=== PATIENT | female | born 1995 | race Hispanic/Latino ===

== ENCOUNTER 2017-05-02 02:35 | Observation (INO) | payer MEDICAID ==
[~2017-05-02] VITALS: Ht 157.5 cm; Wt 54.4 kg
[2017-05-02 03:03] LABS: APPEARANCE,URINE Turbid (CLEAR); BILIRUBIN,URINE Negative (NEGATIVE); COLOR,URINE Yellow (YELLOW); GLUCOSE, URINE (UA) Negative (NEGATIVE); KETONES,URINE Negative (NEGATIVE); LEUKOCYTE ESTERASE ,URINE Moderate (NEGATIVE); NITRATE,URINE Negative (NEGATIVE); OCCULT BLOOD,URINE Small (NEGATIVE); PROTEIN,URINE Negative (NEGATIVE)
[2017-05-02] MEDS ORDERED: MORPHINE SULFATE 2 MG/ML 1ML SYG ONE ×2 (03:03→03:59)
[2017-05-02] MEDS ORDERED: ACETAMINOPHEN EXTRA STRENGTH 500 MG TABLET ONE (03:04)
[2017-05-02 03:06] LABS: BASOPHILS % (AUTO) 0.4 % (0.0-5.0); EOSINOPHILS % (AUTO) 0.5 % (0.0-8.0); HEMATOCRIT 32.9 % (36-48); LYMPHOCYTES % (AUTO) 21.9 % (21.0-51.0); MEAN CORPUSCULAR HEMOGLOBIN 31.2 pg (27.0-33.0); MEAN CORPUSCULAR HGB CONC 34.5 g/dL (32.0-36.0); MEAN CORPUSCULAR VOLUME 90.4 fL (79-99); MONOCYTES % (AUTO) 6.2 % (3.0-13.0); PLATELET COUNT (AUTO) 354 K/uL (130-400); RED BLOOD CELL COUNT(AUTO) 3.64 MIL/uL (4.00-5.50); RED CELL DISTRIBUTION WIDTH 13.1 % (11.0-15.5); WHITE BLOOD COUNT (AUTO) 12.8 K/uL (4.8-10.8)
[2017-05-02 03:16] LABS: CREATININE 0.6 mg/dL (0.5-1.5)
[2017-05-02 03:20] LABS: POTASSIUM 2.8 mmol/L (3.5-5.1)
[2017-05-02 03:39] LABS: BACTERIA,URINE None Seen /HPF (None Seen); SQUAMOUS EPITHELIAL CELL,UR Few /LPF (0-2)
[2017-05-02] MEDS ORDERED: MORPHINE SULFATE 8 MG/ML VIAL ONE (04:38)
[2017-05-02 06:33] VITALS: BP 102/57
[2017-05-02] MEDS ORDERED: MORPHINE SULFATE 2 MG/ML 1ML SYG IM PRN (07:00)
[2017-05-02 07:28] VITALS: BP 110/66
[2017-05-02] MEDS: SODIUM CHLORIDE 0.9% 1000ML 1,000 ML IV SCH ×2 (07:37→16:04)
[2017-05-02] MEDS ORDERED: PREN-66 PO (08:22)
[2017-05-02 11:21] VITALS: BP 121/74
[2017-05-02] MEDS ORDERED: POTASSIUM CHLORIDE 10% ELIXIR 20 MEQ/15 ML UDCUP PO PRN (12:30)
[2017-05-02] MEDS ORDERED: POTASSIUM CHLORIDE 20MEQ/100ML 100 ML IV PRN (12:30)
[2017-05-02] MEDS ORDERED: CEFTRIAXONE 1GM/D5W 50ML 50 ML IV SCH (12:30)
[2017-05-02] MEDS ORDERED: LIDOCAINE HCL-MPF 1% 2ML VIAL IVP PRN (12:30)
[2017-05-02] MEDS: CEFTRIAXONE SODIUM 1 GM IVP SCH (13:14)
[2017-05-02] MEDS: POTASSIUM CHLORIDE 20 MEQ ERTAB PO PRN ×4 (13:42→20:17)
[2017-05-02 15:35] VITALS: BP 104/58
[2017-05-02 19:23] VITALS: BP 100/60
[2017-05-02 23:16] VITALS: BP 106/60
[2017-05-03] MEDS: SODIUM CHLORIDE 0.9% 1000ML 1,000 ML IV SCH ×2 (00:25→14:06)
[2017-05-03 03:37] VITALS: BP 110/67
[2017-05-03 05:11] LABS: HEMATOCRIT 29.8 % (36-48); MEAN CORPUSCULAR HEMOGLOBIN 32.3 pg (27.0-33.0); MEAN CORPUSCULAR HGB CONC 34.4 g/dL (32.0-36.0); MEAN CORPUSCULAR VOLUME 93.7 fL (79-99); PLATELET COUNT (AUTO) 306 K/uL (130-400); RED BLOOD CELL COUNT(AUTO) 3.18 MIL/uL (4.00-5.50); RED CELL DISTRIBUTION WIDTH 13.4 % (11.0-15.5); WHITE BLOOD COUNT (AUTO) 7.9 K/uL (4.8-10.8)
[2017-05-03 05:24] LABS: BAND NEUTROPHILS % (MANUAL) 2 % (0-2); BASOPHILS % (MANUAL) 3 % (0-2); EOSINOPHILS % (MANUAL) 1 % (1-6); LYMPHOCYTES % (MANUAL) 26 % (22-44); MAN.DIFF COMMENT-IMPRESSION MANUAL DIFFERENTIAL; MONOCYTES % (MANUAL) 4 % (2-9); PLATELET MORPHOLOGY COMMENT ADEQUATE; SEGMENTED NEUTROPHILS % 64 % (40-70)
[2017-05-03 05:33] LABS: CREATININE 0.4 mg/dL (0.5-1.5); MAGNESIUM 1.9 mg/dL (1.80-2.40); POTASSIUM 3.9 mmol/L (3.5-5.1)
[2017-05-03 07:34] VITALS: BP 94/54
[2017-05-03 11:27] VITALS: BP 101/51
[2017-05-03] MEDS ORDERED: CEFD300C3 PO (14:02)
[2017-05-03] MEDS: CEFTRIAXONE SODIUM 1 GM IVP SCH (14:26)
== END 2017-05-03 15:28 | disposition home or self-care (01) ==
LOC: EDH 02:35 → INTOOBSV 02:36 → OBSVTOIN 02:36 → EDHIP 02:36 → WSH 06:25
PROVIDERS: ADMIT Family Medicine; ATTEND Family Medicine
DX: O26.892 Other specified pregnancy related conditions, second trimester (principal); O99.282 Endocrine, nutritional and metabolic diseases complicating pregnancy, second trimester; E87.6 Hypokalemia; O23.02 Infections of kidney in pregnancy, second trimester; Z3A.16 16 weeks gestation of pregnancy
CPT/HCPCS: 36415 ×2; 76805; 80048 ×2; 81001; 83735; 84702; 85025 ×2; 86900; 86901; 87088; 96361 ×2; 96365; 96375; 96376; 99285; A4218 ×2; G0378 ×37; J0696 ×2; J2270; J3480; J7030 ×2